=== PATIENT | female | born 1985 | race Two or more races ===

== ENCOUNTER → 2020-07-11 | Outpatient (CLI) | payer OTHER ==
--- NOTE | 2020-07-11 08:37 | RAD ---
Ultrasound of the abdomen 07/11/2020 CLINICAL HISTORY: Elevated liver function tests. TECHNIQUE: A real-time ultrasound examination of the abdomen was performed. Multiple images were obta ined. FINDINGS: The gallbladder is slightly contracted. No gallstones are visualized. The gallbladder wall thickness is within normal limits. No pericholecystic fluid is seen. The liver is normal in size measuring 17.3 cm in length. Increased echogenicity of the liver parenchy ma is seen consistent with fatty infiltration. The common bile duct measures 5 mm in diameter which i s within normal limits. The visualized portions of pancreas, the spleen and both kidneys are within normal limits. The abdominal aorta is not well-visualized due to overlying bowel gas. The inferior vena cava is not well-visualized due to overlying bowel gas. No free fluid is seen. IMPRESSION: Fatty infiltration of the liver. Otherwise negative study. Electronically signed by: Zach Mariee MD (07/11/2020 8:34 AM) [id number]
== END ==
LOC: US 07:10
PROVIDERS: ATTEND Family Medicine
DX: K76.0 Fatty (change of) liver, not elsewhere classified (principal); R94.5 Abnormal results of liver function studies
CPT/HCPCS: 76700